=== PATIENT | male | born 1965 | race Caucasian/White ===

== ENCOUNTER 2021-02-11 12:08 | Inpatient (IN) ==
[2021-02-11] MEDS ORDERED: Isovue-370 500 ML BOTTLE IVP ONE (12:44)
[2021-02-11] MEDS ORDERED: 0.9 % Sodium Chloride 1,000 ML IVC ONE (12:44)
[2021-02-11 12:58] LABS: Basophils % 0.7 %; Hemoglobin 13.8 g/dL (12.9-16.9); Immature Granulocytes % 0.4 % (0-4); Red Cell Distribution Width 14.2 % (11.5-14.5)
[2021-02-11 13:00] LABS: Hematocrit 38.5 % (37.5-50.1); Immature Platelets 9.1 % (1.1-6.1); Lymphocytes # 0.3 K/mcL (0.6-4.6); Lymphocytes % 5.1 %; Mean Corpuscular HGB Conc 35.8 g/dL (31.6-35.5); Mean Corpuscular Hemoglobin 36.6 pg (28.0-33.3); Mean Corpuscular Volume 102.1 fL (83.0-100.0); Mean Platelet Volume 12.3 fL (9.4-12.4); Monocytes # 0.6 K/mcL (0.0-1.3); Monocytes % 11.6 %; Neutrophils # 4.4 K/mcL (1.6-8.9); Red Blood Count 3.77 M/mcL (4.19-5.50); Segmented Neutrophils % 82.2 %; White Blood Count 5.3 K/mcL (4.3-11.1)
[2021-02-11 13:01] LABS: Platelet Count 58 K/mcL (140-400)
[2021-02-11 13:06] LABS: INR 1.5; Prothrombin Time 16.7 Seconds (9.4-12.1)
[2021-02-11 13:08] LABS: Activated Partial Thrombo Time 30.1 Seconds (26.0-36.0)
[2021-02-11 13:27] LABS: Albumin 2.4 g/dL (3.5-5.7); Albumin/Globulin Ratio 0.4 (1.1-2.2); Alkaline Phosphatase 102 Units/L (34-104); BUN/Creatinine Ratio 18 (6-26); Bilirubin,Total 3.8 mg/dL (0.3-1.0); Blood Urea Nitrogen 62 mg/dL (6-20); Calcium 6.4 mg/dL (8.6-10.3); Carbon Dioxide 22 mEq/L (23-29); Chloride 88 mEq/L (98-107); Globulin 5.8 g/dL (2.4-3.5); Glucose 151 mg/dL (70-105); Lipase 217 Units/L (11-82); Osmolality,Calculated 277 (280-300); Potassium 4.2 mEq/L (3.5-5.1); Sodium 123 mEq/L (136-145); Total Protein 8.2 g/dL (6.4-8.9); Troponin I 0.18 ng/mL (< 0.04); eGFR For African Americans 23 (> 60); eGFR For Non-African Americans 19 (> 60)
[2021-02-11 14:15] LABS: Alanine Aminotransferase 624 Units/L (7-52); Aspartate Amino Transferase > 3000 Units/L (13-39); Creatine Kinase > 20000 Units/L (30-223)
[2021-02-11 15:53] LABS: Amorphous Sediment,Urine Few per hpf (None-Few); Bacteria,Urine Few per hpf (None-Few); Bilirubin,Urine Negative (Negative); Blood,Urine Large (Negative); Clarity,Urine Turbid (Clear); Color,Urine Light-Orange (Yellow); Glucose,Urine (UA) Normal (Normal); Ketones,Urine Negative (Negative); Leukocyte Esterase,Urine Negative (Negative); Nitrite,Urine Negative (Negative); PH,Urine 5.5 pH Units (5.0-8.0); Protein,Urine 100 mg/dL (Neg-Trace); RBC,Urine 0-3 per hpf (0-3); Specific Gravity,Urine 1.012 (1.010-1.025); Urobilinogen,Urine Normal (Normal)
[2021-02-11] MEDS ORDERED: Naloxone 0.4 MG/ML INJ IVP PRN (16:49)
[2021-02-11] MEDS: 0.9 % Sodium Chloride 1,000 ML IVC SCH (19:48)
[2021-02-12 02:17] LABS: Basophils % 0.8 %; Hematocrit 36.8 % (37.5-50.1); Hemoglobin 12.9 g/dL (12.9-16.9); Immature Granulocytes % 0.4 % (0-4); Immature Platelets 7.8 % (1.1-6.1); Lymphocytes # 0.3 K/mcL (0.6-4.6); Lymphocytes % 5.1 %; Mean Corpuscular HGB Conc 35.1 g/dL (31.6-35.5); Mean Corpuscular Hemoglobin 35.9 pg (28.0-33.3); Mean Corpuscular Volume 102.5 fL (83.0-100.0); Mean Platelet Volume 12.1 fL (9.4-12.4); Monocytes # 0.6 K/mcL (0.0-1.3); Monocytes % 11.5 %; Neutrophils # 4.2 K/mcL (1.6-8.9); Red Blood Count 3.59 M/mcL (4.19-5.50); Red Cell Distribution Width 14.2 % (11.5-14.5); Segmented Neutrophils % 82.2 %; White Blood Count 5.1 K/mcL (4.3-11.1)
[2021-02-12 02:18] LABS: Platelet Count 51 K/mcL (140-400)
[2021-02-12 02:25] LABS: INR 1.5; Prothrombin Time 16.9 Seconds (9.4-12.1)
[2021-02-12 02:27] LABS: Activated Partial Thrombo Time 27.9 Seconds (26.0-36.0)
[2021-02-12 02:36] LABS: Amphetamine Screen,Urine Negative ng/mL (Cutoff=1000); Barbiturate Screen,Urine Negative ng/mL (Cutoff=200); Benzodiazepines Screen,Urine Negative ng/mL (Cutoff=200); Cannabinoid Screen,Urine Negative ng/mL (Cutoff = 50); Cocaine Screen,Urine Negative ng/mL (Cutoff= 300); Opiate Screen,Urine Negative ng/mL (Cutoff=300); Phencyclidine Screen,Urine Negative ng/mL (Cutoff=25)
[2021-02-12 02:37] LABS: Sodium, Urine 55.9 mEq/L
[2021-02-12] MEDS: 0.9 % Sodium Chloride 1,000 ML IVC SCH ×6 (04:21→22:29)
[2021-02-12 05:35] LABS: Albumin 2.2 g/dL (3.5-5.7); Albumin/Globulin Ratio 0.4 (1.1-2.2); Alkaline Phosphatase 91 Units/L (34-104); BUN/Creatinine Ratio 19 (6-26); Bilirubin,Total 3.7 mg/dL (0.3-1.0); Blood Urea Nitrogen 87 mg/dL (6-20); Calcium 5.1 mg/dL (8.6-10.3); Carbon Dioxide 17 mEq/L (23-29); Chloride 91 mEq/L (98-107); Chol/HDL Ratio 17.6 (0-4.9); Cholesterol 123 mg/dL (< 200); Globulin 5.1 g/dL (2.4-3.5); Glucose 127 mg/dL (70-105); HDL Cholesterol 7 mg/dL (40-59); LDL Cholesterol,Calculated 69 mg/dL (< 100); Osmolality,Calculated 284 (280-300); Phosphorous 9.8 mg/dL (2.7-4.5); Potassium 5.2 mEq/L (3.5-5.1); Sodium 123 mEq/L (136-145); Total Protein 7.3 g/dL (6.4-8.9); Triglycerides 236 mg/dL (< 150); eGFR For African Americans 16 (> 60); eGFR For Non-African Americans 13 (> 60)
[2021-02-12 06:01] LABS: Alanine Aminotransferase 616 Units/L (7-52); Aspartate Amino Transferase > 3000 Units/L (13-39)
[2021-02-12] MEDS: Calcium Gluconate 1gm/50mL 1 GM/50 ML BAG IVPB SCH ×2 (08:57→12:18)
[2021-02-12 09:56] LABS: Creatine Kinase > 20000 Units/L (30-223)
[2021-02-12] MEDS ORDERED: SODIUM ZIRCONIUM CYCLOSILICATE 5 GM POWD.PACK PO ONE (11:59)
[2021-02-12] MEDS ORDERED: 0.9 % Sodium Chloride 250 ML IVC PRN (11:59)
[2021-02-12] MEDS ORDERED: 0.9 % Sodium Chloride 1,000 ML PRIME SCH (12:00)
[2021-02-12] MEDS: Calcium Acetate 667 MG CAPSULE PO SCH ×4 (12:11→18:35)
[2021-02-12 13:14] LABS: Calcium 4.9 mg/dL (8.6-10.3); Potassium 6.2 mEq/L (3.5-5.1)
[2021-02-12] MEDS ORDERED: Heparin 1,000 UNITS/500 mL 500 ML ONE (13:17)
[2021-02-12 13:29] LABS: Hepatitis B Surface Antibody < 3.10 mIU/mL
[2021-02-12] MEDS ORDERED: *HR* Heparin 5,000 UNIT/ML VIAL ONE (13:36)
[2021-02-12 14:46] LABS: Troponin I 0.28 ng/mL (< 0.04)
[2021-02-12] MEDS ORDERED: *HR* LORazepam 2 MG/ML VIAL IVP PRN ×3 (15:50)
[2021-02-12 17:22] LABS: Hepatitis B Surface Antigen Reactive (Nonreactive)
[2021-02-12 17:30] LABS: Calcium 5.3 mg/dL (8.6-10.3); Potassium 4.8 mEq/L (3.5-5.1)
[2021-02-12 17:31] LABS: Basophils % 0.5 %
[2021-02-12 17:46] LABS: Hematocrit 35.4 % (37.5-50.1); Immature Granulocytes % 0.5 % (0-4); Lymphocytes # 0.3 K/mcL (0.6-4.6); Lymphocytes % 4.6 %; Mean Corpuscular HGB Conc 36.7 g/dL (31.6-35.5); Mean Corpuscular Hemoglobin 37.1 pg (28.0-33.3); Mean Corpuscular Volume 101.1 fL (83.0-100.0); Mean Platelet Volume 11.9 fL (9.4-12.4); Monocytes # 0.5 K/mcL (0.0-1.3); Monocytes % 9.1 %; Red Cell Distribution Width 14.3 % (11.5-14.5); Segmented Neutrophils % 85.3 %; White Blood Count 5.8 K/mcL (4.3-11.1)
[2021-02-12 17:47] LABS: Platelet Count 48 K/mcL (140-400)
[2021-02-12] MEDS: Thiamine (B-1) 100 MG TABLET PO SCH (18:35)
[2021-02-13 03:29] LABS: Basophils % 0.3 %; Eosinophils # 0.2 K/mcL (0.0-0.6); Eosinophils % 2.5 %; Hemoglobin 14.1 g/dL (12.9-16.9); Immature Granulocytes % 0.5 % (0-4); Immature Platelets 8.2 % (1.1-6.1); Lymphocytes # 0.2 K/mcL (0.6-4.6); Lymphocytes % 3.6 %; Mean Corpuscular HGB Conc 36.2 g/dL (31.6-35.5); Mean Corpuscular Volume 102.4 fL (83.0-100.0); Mean Platelet Volume 12.1 fL (9.4-12.4); Monocytes # 0.6 K/mcL (0.0-1.3); Monocytes % 9.7 %; Neutrophils # 5.1 K/mcL (1.6-8.9); Red Blood Count 3.81 M/mcL (4.19-5.50); Red Cell Distribution Width 14.6 % (11.5-14.5); Segmented Neutrophils % 83.4 %; White Blood Count 6.1 K/mcL (4.3-11.1)
[2021-02-13 03:30] LABS: Platelet Count 46 K/mcL (140-400)
[2021-02-13 03:32] LABS: VBG Ionized Calcium 0.65 mmol/L (1.15-1.35)
[2021-02-13 03:43] LABS: Calcium 5.3 mg/dL (8.6-10.3); Potassium 4.9 mEq/L (3.5-5.1)
[2021-02-13 03:52] LABS: Creatine Kinase > 20000 Units/L (30-223); Phosphorous 8.7 mg/dL (2.7-4.5)
[2021-02-13] MEDS: 0.9 % Sodium Chloride 1,000 ML IVC SCH ×4 (04:13→20:55)
[2021-02-13] MEDS ORDERED: 0.9 % Sodium Chloride 250 ML IVC PRN (07:17)
[2021-02-13] MEDS: Thiamine (B-1) 100 MG TABLET PO SCH (07:20)
[2021-02-13] MEDS: Calcium Acetate 667 MG CAPSULE PO SCH ×3 (07:20→16:11)
[2021-02-13] MEDS: amLODIPine 5 MG TABLET PO SCH ×2 (13:20→16:11)
[2021-02-13] MEDS: Metoprolol XL (24 HR) Succ 25 MG TAB.ER.24H PO SCH (13:20)
[2021-02-14 06:16] LABS: Immature Granulocytes % 0.3 % (0-4); Mean Corpuscular HGB Conc 35.2 g/dL (31.6-35.5); Mean Platelet Volume 12.1 fL (9.4-12.4); Red Cell Distribution Width 14.6 % (11.5-14.5)
[2021-02-14 06:18] LABS: Hematocrit 36.9 % (37.5-50.1); Immature Platelets 8.2 % (1.1-6.1); Lymphocytes # 0.2 K/mcL (0.6-4.6); Lymphocytes % 5.4 %; Mean Corpuscular Hemoglobin 35.7 pg (28.0-33.3); Mean Corpuscular Volume 101.4 fL (83.0-100.0); Monocytes # 0.4 K/mcL (0.0-1.3); Neutrophils # 3.2 K/mcL (1.6-8.9); Red Blood Count 3.64 M/mcL (4.19-5.50); Segmented Neutrophils % 82.3 %; White Blood Count 3.9 K/mcL (4.3-11.1)
[2021-02-14 06:38] LABS: Platelet Count 42 K/mcL (140-400)
[2021-02-14 06:42] LABS: Albumin/Globulin Ratio 0.4 (1.1-2.2); Alkaline Phosphatase 90 Units/L (34-104); BUN/Creatinine Ratio 19 (6-26); Bilirubin,Total 4.3 mg/dL (0.3-1.0); Blood Urea Nitrogen 77 mg/dL (6-20); Calcium 5.4 mg/dL (8.6-10.3); Carbon Dioxide 21 mEq/L (23-29); Chloride 93 mEq/L (98-107); Globulin 4.7 g/dL (2.4-3.5); Glucose 145 mg/dL (70-105); Magnesium 2.5 mg/dL (1.6-2.6); Osmolality,Calculated 290 (280-300); Phosphorous 8.8 mg/dL (2.7-4.5); Potassium 4.7 mEq/L (3.5-5.1); Sodium 127 mEq/L (136-145); Total Protein 6.7 g/dL (6.4-8.9); eGFR For African Americans 19 (> 60); eGFR For Non-African Americans 16 (> 60)
[2021-02-14 06:55] LABS: Alanine Aminotransferase 693 Units/L (7-52); Aspartate Amino Transferase 2888 Units/L (13-39); Thyroid Stimulating Hormone 4.253 mcIU/mL (0.340-5.600)
[2021-02-14] MEDS: 0.9 % Sodium Chloride 1,000 ML IVC SCH (07:12)
[2021-02-14 07:21] LABS: Hepatitis C Virus Antibody Nonreactive (Nonreactive)
[2021-02-14 07:22] LABS: Hepatitis B Core IgM Nonreactive (Nonreactive)
[2021-02-14 07:23] LABS: Hepatitis A Antibody IgM Nonreactive (Nonreactive)
[2021-02-14] MEDS: Calcium Acetate 667 MG CAPSULE PO SCH ×3 (07:46→15:41)
[2021-02-14] MEDS: amLODIPine 5 MG TABLET PO SCH (07:46)
[2021-02-14] MEDS: Thiamine (B-1) 100 MG TABLET PO SCH (07:46)
[2021-02-14] MEDS: Calcium Gluconate 1gm/50mL 1 GM/50 ML BAG IVPB SCH ×2 (07:47→09:23)
[2021-02-14] MEDS: Metoprolol XL (24 HR) Succ 25 MG TAB.ER.24H PO SCH ×2 (07:47→21:41)
[2021-02-14] MEDS ORDERED: 0.9 % Sodium Chloride 250 ML IVC PRN (09:31)
[2021-02-14 09:37] LABS: Hepatitis B Surface Antigen Reactive (Nonreactive)
[2021-02-14 09:51] LABS: Creatine Kinase > 20000 Units/L (30-223)
[2021-02-14] MEDS ORDERED: Ondansetron 4 MG/2 ML VIAL IVP PRN (14:23)
[2021-02-14] MEDS ORDERED: *HR* Heparin 10,000 UNIT/10 ML VIAL IV PRN (14:56)
[2021-02-14] MEDS ORDERED: Acetaminophen 325 MG TABLET PO PRN (15:32)
[2021-02-14 17:31] LABS: Basophils % 0.2 %; Immature Granulocytes % 0.2 % (0-4); Lymphocytes % 4.1 %; Mean Corpuscular Volume 101.1 fL (83.0-100.0); Platelet Count 53 K/mcL (140-400); Red Cell Distribution Width 14.8 % (11.5-14.5)
[2021-02-14 17:33] LABS: Hematocrit 38.1 % (37.5-50.1); Hemoglobin 13.6 g/dL (12.9-16.9); Immature Platelets 7.6 % (1.1-6.1); Lymphocytes # 0.2 K/mcL (0.6-4.6); Mean Corpuscular HGB Conc 35.7 g/dL (31.6-35.5); Mean Corpuscular Hemoglobin 36.1 pg (28.0-33.3); Mean Platelet Volume 12.4 fL (9.4-12.4); Monocytes # 0.3 K/mcL (0.0-1.3); Monocytes % 6.6 %; Neutrophils # 4.3 K/mcL (1.6-8.9); Red Blood Count 3.77 M/mcL (4.19-5.50); Segmented Neutrophils % 88.9 %; White Blood Count 4.8 K/mcL (4.3-11.1)
[2021-02-14 18:03] LABS: Platelet Estimate Decreased (Normal)
[2021-02-14] MEDS ORDERED: *HR* Metoprolol 5 MG/5 ML VIAL IVP ONE ×2 (18:10→21:12)
[2021-02-14] MEDS ORDERED: MetroNIDAZOLE 500 MG/100 ML 500 MG/100 ML BAG IVPB SCH (18:47)
[2021-02-14] MEDS: *HR* Metoprolol 5 MG/5 ML VIAL IVP PRN ×2 (19:42→20:54)
[2021-02-14] MEDS ORDERED: cefTRIAXone 2,000 MG in Water for inj. (sterile) 20 ML IVP SCH (21:00)
[2021-02-14] MEDS: metroNIDAZOLE 500 MG TABLET PO SCH (21:41)
[2021-02-14] MEDS ORDERED: Ringers Solution, Lactated 1,000 ML ONE (22:14)
[2021-02-14] MEDS ORDERED: Ringers Solution, Lactated 250 ML IVC PRN (22:25)
[2021-02-15 06:25] LABS: Basophils % 0.4 %; Hematocrit 35.8 % (37.5-50.1); Hemoglobin 12.6 g/dL (12.9-16.9); Immature Granulocytes % 0.6 % (0-4); Immature Platelets 9.4 % (1.1-6.1); Lymphocytes # 0.3 K/mcL (0.6-4.6); Lymphocytes % 3.2 %; Mean Corpuscular HGB Conc 35.2 g/dL (31.6-35.5); Mean Corpuscular Hemoglobin 36.2 pg (28.0-33.3); Mean Corpuscular Volume 102.9 fL (83.0-100.0); Mean Platelet Volume 12.7 fL (9.4-12.4); Monocytes # 0.7 K/mcL (0.0-1.3); Monocytes % 8.2 %; Neutrophils # 7.5 K/mcL (1.6-8.9); Red Blood Count 3.48 M/mcL (4.19-5.50); Red Cell Distribution Width 15.1 % (11.5-14.5); Segmented Neutrophils % 87.6 %; White Blood Count 8.6 K/mcL (4.3-11.1)
[2021-02-15 06:27] LABS: Platelet Count 49 K/mcL (140-400)
[2021-02-15 06:47] LABS: Albumin 1.8 g/dL (3.5-5.7); Albumin/Globulin Ratio 0.4 (1.1-2.2); Alkaline Phosphatase 82 Units/L (34-104); BUN/Creatinine Ratio 18 (6-26); Bilirubin,Total 4.8 mg/dL (0.3-1.0); Blood Urea Nitrogen 73 mg/dL (6-20); Calcium 5.6 mg/dL (8.6-10.3); Carbon Dioxide 19 mEq/L (23-29); Chloride 94 mEq/L (98-107); Globulin 4.5 g/dL (2.4-3.5); Glucose 108 mg/dL (70-105); Magnesium 2.5 mg/dL (1.6-2.6); Osmolality,Calculated 292 (280-300); Phosphorous 8.5 mg/dL (2.7-4.5); Potassium 4.5 mEq/L (3.5-5.1); Sodium 130 mEq/L (136-145); Total Protein 6.3 g/dL (6.4-8.9); eGFR For African Americans 19 (> 60); eGFR For Non-African Americans 15 (> 60)
[2021-02-15 07:06] LABS: Alanine Aminotransferase 675 Units/L (7-52); Aspartate Amino Transferase 2463 Units/L (13-39); Creatine Kinase > 20000 Units/L (30-223)
[2021-02-15 07:15] LABS: Platelet Estimate Decreased (Normal)
[2021-02-15] MEDS ORDERED: 0.9 % Sodium Chloride 250 ML IVC PRN ×2 (07:23→16:23)
[2021-02-15] MEDS: Thiamine (B-1) 100 MG TABLET PO SCH (08:07)
[2021-02-15] MEDS: Albumin 25% 25gram/100mL 25 GM/100 ML IV.SOLN IVC SCH ×4 (08:07→14:35)
[2021-02-15] MEDS: metroNIDAZOLE 500 MG TABLET PO SCH ×2 (08:07→14:04)
[2021-02-15] MEDS: Calcium Acetate 667 MG CAPSULE PO SCH ×2 (08:07→12:53)
[2021-02-15] MEDS: Metoprolol XL (24 HR) Succ 25 MG TAB.ER.24H PO SCH (08:08)
[2021-02-15] MEDS: amLODIPine 5 MG TABLET PO SCH (08:08)
[2021-02-15] MEDS ORDERED: Perflutren Lipid Microsphere 1.3 ML in 0.9 % Sodium Chloride 8.7 ML IVP PRN (12:02)
[2021-02-15] MEDS ORDERED: Sodium Bicarbonate 150 MEQ in D5% in Water 1,000 ML IVC SCH ×2 (13:00→16:23)
[2021-02-15] MEDS ORDERED: Norepinephrine 4 MG/254 ML IV.SOLN IVC SCH ×2 (14:45→16:23)
[2021-02-15] MEDS ORDERED: *HR* Heparin 5,000 UNIT/ML VIAL IVP PRN ×2 (15:38→16:23)
[2021-02-15] MEDS ORDERED: PrismaSATE BGK 4/2.5 5,000 ML CRRT SCH ×2 (15:45)
[2021-02-15] MEDS ORDERED: 0.9 % Sodium Chloride 1,000 ML PRIME SCH ×3 (15:45→16:23)
[2021-02-15 15:59] VITALS: TEMP 98.7
[2021-02-15 16:22] LABS: ABG Base Excess -14 mEq/L (-2 to 3); ABG HCO3 9 mEq/L (21-27); ABG Oxygen Saturation 98 % (95-98); ABG PCO2 14 mmHg (35-45); ABG PH 7.38 pH Units (7.32-7.45); ABG PO2 105 mmHg (85-104); ABG TCO2 9 mEq/L (20-26)
[2021-02-15] MEDS ORDERED: Acetaminophen 325 MG TABLET PO PRN (16:23)
[2021-02-15] MEDS ORDERED: Ondansetron 4 MG/2 ML VIAL IVP PRN (16:23)
[2021-02-15] MEDS ORDERED: *HR* LORazepam 2 MG/ML VIAL IVP PRN ×3 (16:23)
[2021-02-15] MEDS ORDERED: Naloxone 0.4 MG/ML INJ IVP PRN (16:23)
[2021-02-15] MEDS ORDERED: Calcium Acetate 667 MG CAPSULE PO SCH (17:00)
[2021-02-15] MEDS ORDERED: Vasopressin 40 UNIT in D5% in Water 100 ML IVC SCH (17:15)
[2021-02-15] MEDS ORDERED: *HR* Dextrose 50 % in Water (Syg) 50 ML SYRINGE ONE (18:57)
[2021-02-15 18:59] LABS: Adenovirus Not Detected (Not Detect); Bordetella Pertussis Not Detected (Not Detect); Chlamydophila pneumoniae Not Detected (Not Detect); Coronavirus 229E Not Detected (Not Detect); Coronavirus HKU1 Not Detected (Not Detect); Coronavirus NL63 Not Detected (Not Detect); Coronavirus OC43 Not Detected (Not Detect); Human Metapneumovirus Not Detected (Not Detect); Human Rhinovirus/Enterovirus Not Detected (Not Detect); Influenza A Subtype 2009 H1 Not Detected (Not Detect); Influenza B Not Detected (Not Detect); Mycoplasma pneumoniae Not Detected (Not Detect); Parainfluenza Virus 1 Not Detected (Not Detect); Parainfluenza Virus 2 Not Detected (Not Detect); Parainfluenza Virus 3 Not Detected (Not Detect); Parainfluenza Virus 4 Not Detected (Not Detect); Respiratory Syncytial Virus Not Detected (Not Detect); SARS-CoV-2 Not Detected (Not Detect)
[2021-02-15] MEDS ORDERED: *HR* Dextrose 50 % in Water (Syg) 50 ML SYRINGE IVP ONE (19:59)
[2021-02-15] MEDS ORDERED: D5% in Water 1,000 ML IVC SCH (20:00)
[2021-02-15] MEDS: Phenylephrine 10 MG in 0.9 % Sodium Chloride 250 ML IVC SCH ×2 (20:12→21:11)
[2021-02-15 20:34] LABS: ABG Base Excess -20 mEq/L (-2 to 3); ABG HCO3 9 mEq/L (21-27); ABG Oxygen Saturation 88 % (95-98); ABG PCO2 30 mmHg (35-45); ABG PH 7.09 pH Units (7.32-7.45); ABG PO2 73 mmHg (85-104); ABG TCO2 10 mEq/L (20-26)
[2021-02-15] MEDS ORDERED: D10% in Water 500 ML IVC SCH (20:45)
[2021-02-15] MEDS ORDERED: D10% in Water 500 ML IV SOLUTION IVC SCH (20:45)
[2021-02-15] MEDS ORDERED: Calcium Gluconate 1gm/50mL 1 GM/50 ML BAG IVPB PRN (20:52)
[2021-02-15 20:58] LABS: INR 3.3; Prothrombin Time 36.1 Seconds (9.4-12.1)
[2021-02-15] MEDS ORDERED: Phenylephrine 50 MG in 0.9 % Sodium Chloride 250 ML IVC SCH (21:00)
[2021-02-15] MEDS ORDERED: Metoprolol XL (24 HR) Succ 25 MG TAB.ER.24H PO SCH (21:00)
[2021-02-15] MEDS ORDERED: Norepinephrine 8 MG in 0.9 % Sodium Chloride 250 ML IVC SCH (21:00)
[2021-02-15] MEDS: PrismaSATE BGK 4/2.5 5,000 ML CRRT SCH ×4 (21:03→22:54)
[2021-02-15 21:06] LABS: Calcium 5.1 mg/dL (8.6-10.3); Potassium 6.3 mEq/L (3.5-5.1)
[2021-02-15] MEDS ORDERED: Norepinephrine 16 MG in 0.9 % Sodium Chloride 500 ML IVC SCH (21:15)
[2021-02-15 21:21] LABS: Albumin 2.4 g/dL (3.5-5.7); Albumin/Globulin Ratio 0.7 (1.1-2.2); Bilirubin,Direct 2.7 mg/dL (0.0-0.2); Bilirubin,Indirect 2.4 mg/dL (0.0-1.0); Bilirubin,Total 5.1 mg/dL (0.3-1.0); Globulin 3.4 g/dL (2.4-3.5); Total Protein 5.8 g/dL (6.4-8.9)
[2021-02-15 21:24] LABS: Hematocrit 32.1 % (37.5-50.1); Hemoglobin 10.4 g/dL (12.9-16.9); Lymphocytes # 0.8 K/mcL (0.6-4.6); Mean Corpuscular HGB Conc 32.4 g/dL (31.6-35.5); Mean Corpuscular Hemoglobin 36.6 pg (28.0-33.3); Mean Platelet Volume 13.2 fL (9.4-12.4); Platelet Count 67 K/mcL (140-400); Red Blood Count 2.84 M/mcL (4.19-5.50); Red Cell Distribution Width 15.9 % (11.5-14.5)
[2021-02-15] MEDS: Calcium Gluconate 1gm/50mL 1 GM/50 ML BAG IVPB SCH ×2 (21:26→21:50)
[2021-02-15 22:42] LABS: ABG Base Excess -20 mEq/L (-2 to 3); ABG HCO3 7 mEq/L (21-27); ABG Oxygen Saturation 98 % (95-98); ABG PCO2 19 mmHg (35-45); ABG PH 7.16 pH Units (7.32-7.45); ABG PO2 126 mmHg (85-104); ABG TCO2 7 mEq/L (20-26)
[2021-02-15 23:02] VITALS: BP 88/63; PULSE 88
[2021-02-15 23:31] LABS: Monocytes # 0.2 K/mcL (0.0-1.3)
[2021-02-15 23:32] VITALS: O2SAT 81
[2021-02-15 23:32] LABS: Acanthocytes 1+ (Not Present); Large Platelets Present (Not Present); Macrocytosis Present (Not Present); Platelet Estimate Normal (Normal)
[2021-02-15] MEDS ORDERED: Albumin 25% 25gram/100mL 25 GM/100 ML IV.SOLN IVPB ONE (23:37)
[2021-02-16 00:02] LABS: ABG Base Excess -21 mEq/L (-2 to 3); ABG HCO3 7 mEq/L (21-27); ABG Oxygen Saturation 92 % (95-98); ABG PCO2 23 mmHg (35-45); ABG PH 7.09 pH Units (7.32-7.45); ABG PO2 84 mmHg (85-104); ABG TCO2 8 mEq/L (20-26)
[2021-02-16] MEDS ORDERED: Albuterol 2.5 MG/3 ML NEBULIZER ONE (00:05)
[2021-02-16 00:28] LABS: VBG Ionized Calcium 0.49 mmol/L (1.15-1.35)
[2021-02-16 00:42] LABS: Albumin 2.1 g/dL (3.5-5.7); Albumin/Globulin Ratio 0.8 (1.1-2.2); Bilirubin,Total 4.3 mg/dL (0.3-1.0); Calcium 4.3 mg/dL (8.6-10.3); Globulin 2.5 g/dL (2.4-3.5); Total Protein 4.6 g/dL (6.4-8.9)
[2021-02-16 00:46] LABS: INR 3.9
[2021-02-16 00:49] LABS: Activated Partial Thrombo Time 45.9 Seconds (26.0-36.0)
[2021-02-16 00:50] LABS: Magnesium 2.6 mg/dL (1.6-2.6); Phosphorous 13.3 mg/dL (2.7-4.5)
[2021-02-16 00:51] LABS: Prothrombin Time 43.3 Seconds (9.4-12.1)
[2021-02-16 01:13] LABS: Immature Granulocytes % 1.5 % (0-4); Mean Corpuscular Hemoglobin 36.6 pg (28.0-33.3)
[2021-02-16 01:15] LABS: Basophils % 0.4 %; Hemoglobin 8.9 g/dL (12.9-16.9); Immature Platelets 12.2 % (1.1-6.1); Lymphocytes # 0.8 K/mcL (0.6-4.6); Lymphocytes % 8.8 %; Mean Corpuscular HGB Conc 31.8 g/dL (31.6-35.5); Mean Corpuscular Volume 115.2 fL (83.0-100.0); Monocytes # 0.7 K/mcL (0.0-1.3); Neutrophils # 7.4 K/mcL (1.6-8.9); Red Blood Count 2.43 M/mcL (4.19-5.50); Red Cell Distribution Width 16.2 % (11.5-14.5); Segmented Neutrophils % 81.3 %; White Blood Count 9.1 K/mcL (4.3-11.1)
[2021-02-16 01:19] LABS: Platelet Count 56 K/mcL (140-400)
[2021-02-16 01:21] LABS: Platelet Estimate Decreased (Normal)
[2021-02-16] MEDS ORDERED: EPINEPHrine 1 MG/ML VIAL IV ONE (02:01)
[2021-02-16] MEDS ORDERED: *HR* Atropine Sulfate 1 MG/10 ML SYRINGE IV ONE (02:01)
[2021-02-16] MEDS ORDERED: Thiamine (B-1) 100 MG TABLET PO SCH (09:00)
[2021-02-17 16:41] LABS: CK-BB (CK isoenzymes) 0 % (0-0); CK-MB (CK isoenzymes) 0 % (0-4); CK-MM (CK-isoenzymes) 100 % (96-100)
[2021-02-18 16:38] LABS: CK Total (Ck Isoenzymes) 228184 U/L (20-200)
[2021-02-19 10:30] LABS: Kappa Qnt Free Light Chains 190.58 mg/L (3.30-19.40)
[2021-02-19 10:31] LABS: ANA IgG by ELISA DETECTED (None Detected)
[2021-02-19 14:19] LABS: ANA HEp-2 IgG IFA DETECTED (<1:80)
[2021-02-19 14:20] LABS: Anti Nuclear Ab Pattern SPECKLED
[2021-02-19 17:14] LABS: Alpha 2 Globulin (PEP) 0.45 g/dL (0.48-1.05); Beta Globulin (PEP) 0.95 g/dL (0.48-1.10)
[2021-02-20 06:58] LABS: IFE Reflexed NOT DONE
== END 2021-02-16 02:02 | disposition expired | DRG 558 ==
LOC: 2NENU 12:08 → EMEROOARM 12:08 → SUATTDRO 17:40 → 2NENU 18:31 → ICNU 02-15 15:16
PROVIDERS: ADMIT Pharmacist; ATTEND Internal Medicine